=== PATIENT | female | born 1990 | race Caucasian/White ===

== ENCOUNTER 2019-06-14 15:46 | Emergency (ER) | payer OTHER ==
--- OUTSIDE RECORDS SUMMARY | 2019-06-14 15:54 | XMS REPORT | Continuity of Care Document ---
:1990 External Reference #:[id number] Author Name KALIE Stark Address [address] [place] [address] Care Team Providers Name Role Phone Jess Nash M.D. - Family Medicine Care Team Information Beta Tester Unavailable Problems Description No Active Problems Social History Type Date Description Comments Sex Unknown Tobacco Use Start: Unknown Never Smoked Cigarettes Smoking Status Reviewed: 05/27/19 Never Smoked Cigarettes ETOH Use Social Alcohol Tobacco Use Start: Unknown nonsmoker Exercise Type/Frequency Exercises rarely Allergies, Adverse Reactions, Alerts Description No Known Drug Allergies Medications Active Medications SIG Qnty Indications Ordering Provider Date Fluticasone 1 puff each 29.7ml H69.91 Jess Nash, 09/12/2017 Propionate nostril everyday M.D. 50mcg/Act Suspension Proair HFA 2 puffs every 4 Unknown 108(90Base) hours as needed mcg/Act Aerosol Immunizations Description No Information Available Vital Signs Date Vital Result Comment 05/27/2019 11:02am BP Systolic 118 mmHg BP Diastolic 80 mmHg Heart Rate 88 /min Body Temperature 98.7 F Respiratory Rate 16 /min Height 62 inches 5'2" Weight 134.12 lb BMI (Body Mass Index) 24.5 kg/m2 09/12/2017 10:19am BP Systolic 90 mmHg BP Diastolic 64 mmHg Heart Rate 70 /min Body Temperature 97.9 F Height 62 inches 5'2" Weight 138.00 lb BMI (Body Mass Index) 25.2 kg/m2 Results Description No Information Available Procedures Description No Information Available Medical Devices Description No Information Available Encounters Description No Information Available Assessments Date Code Description Provider 05/27/2019 O00.01 Abdominal with intrauterine KALIE Stark Plan of Treatment 05/27/2019 - KALIE StarkO00.01 Abdominal with intrauterine pregnancyNew Labs:HCG, Ordered: 05/27/19CBC Electronic (Fma New), Ordered: 05/27CCS-Comp Metabolic (Fma) Femal, Ordered: 05/27/19T4 & TSH, Ordered: 05/27Urine (Fma), Ordered: 05/27/19Comments:Start Vitamin , lots of fruits, vegetablesNo alcohol or drugs Avoid unpausterized milks ,cheese , raw fish Avoid changing gian litter Avoid high temperature baths, sauna, jacuzzi Continue daily exercise [facility] for further careSevere abdominal pain, vaginal bleeding ,discharge- to the ERAllComments: PCMHMedication Management Patient Understands medications he's taking? Yes Are there Barriers to Adherence? No Has the patient been asked about herbal supplements and therapies, and OTC meds? Yes Care Plan1. Patient has been queried about patient's goals/preferences and functional/ lifestyle goals at relevant visits. Yes If relevant, describe: N/A2. Treatment goals as explained to the patient: above3. Are there barriers to meeting treatment goals? No If Yes, please describe:4. Self-Management goals as described to the patient: Yes As always, we strongly encourage a healthy diet and making physical activity a part of your every day life. If you have questions about how or where to start, please contact the office. 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
[2019-06-14 16:19] VITALS: BP 106/64
[2019-06-14 16:40] LABS: Influenza A Molecular Negative (Negative); Influenza B Molecular Negative (Negative)
--- NOTE | 2019-06-14 16:46 | UC ---
HPI Febrile Illness - HPI Summary HPI Summary: 28-year-old male presenting with fever of 101.5 began this morning and persisted until 3 PM which is when she decided to come in. Patient states she is concerned because she is . Does note mild sore throat. Denies nasal congestion and cough. Denies nausea and vomiting. Denies abdominal pain. Denies urinary symptoms. Denies taking anything for fever relief. Patient states she was exposed to the flu by one of her friends. - History of Current Complaint Chief Complaint: UCGeneralIllness Hx Last Menstrual Period: 09/23/13 Pain Intensity: 0 - Allergy/Home Medications Allergies/Adverse Reactions: Allergies Allergy/AdvReac Type Severity Reaction Status Date / Time No Known Allergies Allergy Verified 07/30/12 18:31 Home Medications: Home Medications Ibuprofen TAB* [Motrin TAB*] 800 mg PO PRN 07/23/12 [History Confirmed 10/11/13] Benzonatate [Tessalon Perles] 100 mg PO 10/11/13 [History Confirmed 10/11/13] Oseltamivir Phosphate [Tamiflu] 45 mg PO 10/11/13 [History Confirmed 10/11/13] PMH/Surg Hx/FS Hx/Imm Hx - Surgical History Surgical History: Yes Surgery Procedure, Year, and Place: 2006 AND 2008 FOR FX IN R. LOWER LEG. - Family History Known Family History: Positive: Non-Contributory - Social History Alcohol Use: None Substance Use Type: None Smoking Status (MU): Never Smoked Tobacco Review of Systems All Other Systems Reviewed And Are Negative: Yes Constitutional: Positive: Fever - 101.5, Chills ENT: Positive: Sore Throat Respiratory: Positive: Negative Cardiovascular: Positive: Negative Gastrointestinal: Positive: Negative Musculoskeletal: Negative: Myalgia Neurological/Mental Status: Positive: Negative Physical Exam - Summary Physical Exam Summary: Vital Signs Reviewed: Yes A+Ox3, no distress, well-appearing Eyes: Conjunctiva Clear ENT: Hearing grossly normal, TM x 2 clear, moist, uvula midline, no exudate, no erythema Neck: Positive: Supple Respiratory: Positive: No respiratory distress, No accessory muscle use + CTA throughout no w/r Cardiovascular: RRR nl s1, s2 no m/r Musculoskeletal Exam: RODRIGUEZ x 4 without difficulty Neurological: Positive: Alert Psychological: Positive: age appropriate behavior Skin: Positive: no rash, no ecchymosis Vital Signs: Initial Vital Signs Temp 99.3 F 06/14/19 16:15 Pulse 72 06/14/19 16:15 Resp 18 06/14/19 16:15 BP 106/64 06/14/19 16:15 Pulse Ox 98 06/14/19 16:15 Lab Results 06/14/19 06/14/19 Range/Units 16:25 16:28 POC Urine Color Yellow POC Urine Clarity Clear POC Urine pH 7.0 (5-9) POC Ur Specif Dexter 1.015 (1.010-1.030) POC Urine Protein Negative (Negative) POC Ur Glucose (UA) Negative (Negative) POC Urine Ketones Negative (Negative) POC Urine Blood Trace-intact (Negative) POC Urine Nitrite Negative (Negative) POC Urine Bilirubin Negative (Negative) POC Urine Urobilinogen 0.2 (Negative) POC U Leukocyte Esteras Negative (Negative) Influenza A (Rapid) Negative (Negative) Influenza B (Rapid) Negative (Negative) Course/Dx - Course Course Of Treatment: Negative rapid flu. Negative UA. PE findings and VS normal. Discussed likely viral etiology of febrile illness and instructed to take Tylenol as needed for fever if it recurs. Instructed to go to the ED with any new or worsening symptoms, including fever higher than 102 does not improve with Tylenol. Instructed to follow up with PCP if symptoms persist longer than 5-7 days. Patient voiced understanding and agreed with the treatment plan. - Diagnoses Provider Diagnosis: Fever and chills Discharge ED - Sign-Out/Discharge Documenting (check all that apply): Patient Departure All imaging exams completed and their final reports reviewed: No Studies - Discharge Plan Condition: Stable Disposition: HOME Patient Education Materials: Viral Syndrome (ED) Referrals: Jess Nash MD [Primary Care Provider] - If Needed Additional Instructions: Your flu test was negative today. Take tylenol as directed for fever relief. Get plenty of rest and increase your fluid intake. Follow up with your primary care provider if symptoms do not improve within 5-7 days. Go to the emergency room with any new or worsening symptoms, including fever higher than 102 that does not improve with medicine. - Billing Disposition and Condition Condition: STABLE Disposition: Home
== END 2019-06-14 17:26 | disposition home or self-care (01) ==
LOC: UCEAST 15:46
DX: O99.89 Other specified diseases and conditions complicating pregnancy, childbirth and the puerperium (principal); R50.9 Fever, unspecified; J02.9 Acute pharyngitis, unspecified
CPT/HCPCS: 81003; 99211; G0463

== ENCOUNTER 2020-02-13 03:41 | Inpatient (IN) ==
[2020-02-13] MEDS ORDERED: Buffered Lidocaine 1% SYRIN 1 ml INTRADERM ONE (05:03)
[2020-02-13] MEDS ORDERED: Lactated Ringers 1000 ml BAG 1,000 ML IV ONE ×2 (05:03→11:07)
[2020-02-13 05:49] LABS: Urine Benzodiazepine Screen None Detected (None Detect); Urine Cannabinoids Screen None Detected (None Detect); Urine Opiates Screen None Detected (None Detect)
[2020-02-13] MEDS ORDERED: Lactated Ringers 1000 ml BAG 1,000 ML IV SCH ×3 (06:00→17:00)
[2020-02-13 06:29] LABS: ABS Basophils 0.1 10^3/ul (0-0.2); ABS Eosinophils 0.1 10^3/ul (0-0.6); ABS Lymphocytes 1.6 10^3/ul (1.0-4.8); ABS Monocytes 1.1 10^3/ul (0-0.8); ABS Neutrophils 16.5 10^3/ul (1.5-7.7); Eosinophil % 0.4 %; Hematocrit 37 % (35-47); Hemoglobin 12.8 g/dL (12.0-16.0); Lymphocyte % 8.4 %; Mean Corpuscular HGB Conc 34 g/dL (31-36); Mean Corpuscular Hemoglobin 31 pg (27-31); Mean Corpuscular Volume 91 fL (80-97); Mean Platelet Volume 10.4 fL (7.4-10.4); Platelet Count 160 10^3/uL (150-450); Red Blood Count 4.11 10^6 /uL (3.70-4.87); Red Cell Distribution Width 17 % (10-15); White Blood Count 19.4 10^3/uL (3.5-10.8)
[2020-02-13] MEDS ORDERED: Oxytocin in LR 20 UNITS/1,000 ML BAG IVPB ONE (09:29)
[2020-02-13] MEDS ORDERED: Oxytocin in LR 20 UNITS/1,000 ML BAG IVPB SCH ×2 (09:30→16:00)
[2020-02-13] MEDS ORDERED: OBEPIDURAL 250 ML EPIDURAL ONE (10:28)
[2020-02-13] MEDS ORDERED: Lidocaine 1% MPF 5 ML VIAL ONE (10:45)
[2020-02-13] MEDS ORDERED: Phenylephrine 40 mcg/mL 10mL (400mcg) SYRINGE IV PUSH PRN ×2 (11:07)
[2020-02-13] MEDS ORDERED: Sodium Citrate/Citric Acid LIQ 15 ML UDC PO PRN (11:07)
[2020-02-13] MEDS ORDERED: OBEPIDURAL 250 ML EPIDURAL SCH (12:00)
[2020-02-13] MEDS ORDERED: Dibucaine 1% OINT 28.35 GM TUBE PR PRN (16:27)
[2020-02-13] MEDS ORDERED: Witch Hazel PAD JAR TOPICAL PRN (16:27)
[2020-02-13] MEDS ORDERED: ALBUTEROL INH PRN (16:30)
[2020-02-13] MEDS ORDERED: Lidocaine 1% VIAL 10 MG/ML VIAL ONE (17:18)
[2020-02-13] MEDS ORDERED: Dibucaine 1% OINT 28.35 GM TUBE ONE (17:19)
[2020-02-13] MEDS ORDERED: Witch Hazel PAD JAR ONE (17:19)
[2020-02-14 07:26] LABS: ABS Basophils 0.2 10^3/ul (0-0.2); ABS Eosinophils 0.1 10^3/ul (0-0.6); ABS Lymphocytes 1.7 10^3/ul (1.0-4.8); ABS Monocytes 1.1 10^3/ul (0-0.8); ABS Neutrophils 17.1 10^3/ul (1.5-7.7); Eosinophil % 0.3 %; Hematocrit 36 % (35-47); Hemoglobin 11.7 g/dL (12.0-16.0); Lymphocyte % 8.3 %; Mean Corpuscular HGB Conc 33 g/dL (31-36); Mean Corpuscular Hemoglobin 31 pg (27-31); Mean Corpuscular Volume 93 fL (80-97); Mean Platelet Volume 9.6 fL (7.4-10.4); Platelet Count 125 10^3/uL (150-450); Red Blood Count 3.82 10^6 /uL (3.70-4.87); Red Cell Distribution Width 16 % (10-15)
[2020-02-15 07:38] VITALS: BP 102/63
== END 2020-02-15 13:07 | disposition home or self-care (01) | DRG 560 ==
LOC: MCHOBOUT 03:41 → MCHOB 05:03
PROVIDERS: ADMIT Obstetrics & Gynecology; ATTEND Midwife

== ENCOUNTER 2022-10-31 09:11 | Inpatient (IN) ==
[2022-10-31] MEDS ORDERED: Penicillin G Potassium IV 5,000,000 UNITS in NS 0.9% 100 ml BAG 100 ML IVPB ONE (10:33)
[2022-10-31] MEDS ORDERED: Lactated Ringers 1000 ml BAG 1,000 ML IV ONE ×2 (10:33→21:09)
[2022-10-31] MEDS ORDERED: Promethazine INJ(RESTRICTED) 25 MG/ML 1 ml VIAL IV PRN (10:33)
[2022-10-31] MEDS ORDERED: Buffered Lidocaine 1% SYRIN 1 ml INTRADERM ONE (10:33)
[2022-10-31 11:24] LABS: ABS Eosinophils 0.1 10^3/uL (0.0-0.5); ABS Lymphocytes 1.8 10^3/uL (1.0-4.8); ABS Monocytes 0.7 10^3/uL (0.0-0.9); ABS Neutrophils 11.9 10^3/uL (1.5-7.6); ABS Nucleated RBC 0.01 10^3/ul; Eosinophil % 0.5 %; Hematocrit 30.3 % (35-45); Lymphocyte % 12.4 %; Mean Corpuscular Volume 81.9 fL (80-97); Mean Platelet Volume 9.5 fL (7.5-11.2); Nucleated Red Blood Cells % 0.1 /100 WBC (0.0-0.4); Platelet Count 128 10^3/uL (150-450); Red Cell Distribution Width 18.9 % (12-17); White Blood Count 14.5 10^3/uL (3.8-11.8)
[2022-10-31 12:15] LABS: Urine Benzodiazepine Screen None Detected (None Detect); Urine Cannabinoids Screen None Detected (None Detect); Urine Opiates Screen None Detected (None Detect)
[2022-10-31] MEDS: Penicillin G Potassium IV 3,000,000 UNITS in NS 0.9% 100 ml BAG 100 ML IVPB SCH ×2 (15:36→19:37)
[2022-10-31] MEDS: Oxytocin in LR 20,000 MILLI.UNIT/1,000 ML BAG IV SCH (16:17)
[2022-10-31] MEDS: Lactated Ringers 1000 ml BAG 1,000 ML IV SCH ×3 (18:46→23:54)
[2022-10-31] MEDS ORDERED: OBEPIDURAL (200 ML) 200 ML EPIDURAL ONE (20:16)
[2022-10-31] MEDS ORDERED: Lidocaine 1% w EPI 1:200,000 SDV 30 ML VIAL ONE (20:17)
[2022-10-31] MEDS ORDERED: Lidocaine 1.5% EPI 1:200,000 30 ML SDV ONE (20:24)
[2022-10-31] MEDS ORDERED: Lactated Ringers 1000 ml BAG 500 ML IV PRN ×2 (21:09)
[2022-10-31] MEDS ORDERED: Phenylephrine 40 mcg/mL 10mL (400mcg) SYRINGE IV PUSH PRN (21:09)
[2022-10-31] MEDS ORDERED: Sodium Citrate/Citric Acid LIQ 15 ML UDC PO PRN (21:09)
[2022-10-31] MEDS ORDERED: Lidocaine 1% VIAL 10 MG/ML VIAL 30 ML INJ ONE (21:27)
[2022-10-31 21:58] LABS: Urine Appearance Clear; Urine Bilirubin Negative (Negative); Urine Blood 1+ (Negative); Urine Color Straw; Urine Glucose 1+(50 mg/dL) (Negative); Urine Ketones Negative (Negative); Urine Nitrite Negative (Negative); Urine Protein Negative (Negative); Urine Specific Gravity 1.018 (1.002-1.030); Urine Urobilinogen Negative (Negative)
[2022-10-31] MEDS ORDERED: Lactated Ringers 1000 ml BAG 1,000 ML IV SCH ×2 (22:00)
[2022-10-31] MEDS ORDERED: OBEPIDURAL (200 ML) 200 ML EPIDURAL SCH (22:00)
[2022-10-31 22:05] LABS: Urine Bacteria 1+ (Absent); Urine Red Blood Cell 2+(6-10/hpf) (Absent); Urine White Blood Cell Absent (Absent)
[2022-10-31] MEDS: Phenylephrine 40 mcg/mL 10mL (400mcg) SYRINGE IV PUSH PRN (23:09)
[2022-10-31] MEDS ORDERED: Ondansetron 4 mg VIAL 2 MG/ML 2 ml VIAL IV PRN (23:46)
[2022-11-01] MEDS: Penicillin G Potassium IV 3,000,000 UNITS in NS 0.9% 100 ml BAG 100 ML IVPB SCH ×2 (00:22→19:23)
[2022-11-01] MEDS: Phenylephrine 40 mcg/mL 10mL (400mcg) SYRINGE IV PUSH PRN ×2 (01:00→01:06)
[2022-11-01] MEDS: Lactated Ringers 1000 ml BAG 1,000 ML IV SCH (01:55)
[2022-11-01] MEDS ORDERED: Glycerin ADULT 2.4 gm SUPP PR PRN (04:45)
[2022-11-01] MEDS ORDERED: Lactated Ringers 1000 ml BAG 1,000 ML IV SCH (05:00)
[2022-11-01] MEDS: Witch Hazel PAD JAR TOPICAL PRN ×2 (05:05→20:19)
[2022-11-01] MEDS: Dibucaine 1% OINT 28.35 GM TUBE PR PRN ×2 (05:05→20:19)
[2022-11-01] MEDS ORDERED: Phenylephrine 40 mcg/mL 10mL (400mcg) SYRINGE ONE (07:37)
[2022-11-01] MEDS: Oxytocin in LR 20,000 MILLI.UNIT/1,000 ML BAG IV SCH (19:24)
[2022-11-02 06:56] LABS: ABS Basophils 0.1 10^3/uL (0.0-0.1); ABS Eosinophils 0.2 10^3/uL (0.0-0.5); ABS Monocytes 1.1 10^3/uL (0.0-0.9); ABS Neutrophils 10.8 10^3/uL (1.5-7.6); ABS Nucleated RBC 0.02 10^3/ul; Eosinophil % 1.2 %; Hematocrit 27.4 % (35-45); Hemoglobin 8.8 g/dL (11.5-14.3); Lymphocyte % 14.1 %; Mean Corpuscular Hemoglobin 26.7 pg (27-33); Mean Corpuscular Hgb Conc 32.1 g/dL (31-36); Mean Corpuscular Volume 83.2 fL (80-97); Mean Platelet Volume 9.2 fL (7.5-11.2); Nucleated Red Blood Cells % 0.1 /100 WBC (0.0-0.4); Platelet Count 119 10^3/uL (150-450); Red Blood Count 3.29 10^6/uL (3.63-4.92); Red Cell Distribution Width 18.6 % (12-17); White Blood Count 14.1 10^3/uL (3.8-11.8)
[2022-11-02] MEDS: Witch Hazel PAD JAR TOPICAL PRN (23:59)
[2022-11-02] MEDS: Dibucaine 1% OINT 28.35 GM TUBE PR PRN (23:59)
[2022-11-03 07:30] VITALS: BP 100/64
== END 2022-11-03 13:31 | disposition home or self-care (01) | DRG 806 ==
LOC: MCHOBOUT 09:11 → MCHOB 10:58
PROVIDERS: ADMIT Advanced Practice Midwife; ATTEND Advanced Practice Midwife